=== PATIENT | female | born 1940 | race Caucasian/White ===

== ENCOUNTER 2020-07-05 13:18 | Inpatient (IN) | payer MEDICARE, BC ==
[2020-07-05] MEDS ORDERED: Labetalol HCl 100 MG/20 ML VIAL ONE (13:34)
[2020-07-05 13:50] LABS: #Eosinphils 0.3 thou/uL (0.0-0.7); #Lymphocytes 1.8 thou/uL (1.20-3.40); #Monocytes 0.5 thou/uL (0.11-0.59); #Neutrophils 4.5 thou/uL (1.40-6.50); %Basophils 0.3 % (0.0-1.0); %Eosinophils 3.8 % (0.0-10.0); %Lymphocytes 25.1 % (21.0-51.0); %Monocytes 7.5 % (0.0-10.0); %Neutrophils 63.2 % (42.0-75.0); Mean Corpuscular HGB CONC 33.7 g/dL (32.0-36.0); Mean Corpuscular Hemoglobin 31.9 pg (27.0-31.0); Mean Corpuscular Volume 94.6 fL (78.0-98.0); Mean Platelet Volume 7.7 fL (7.4-10.4); Platelet Count 226 thou/uL (130-400); RBC Distribution Width 11.6 % (11.5-14.5); Red Blood Cell (RBC) Count 4.71 mill/uL (4.20-5.40); White Blood Cell (WBC) Count 7.2 thou/uL (4.8-10.8)
[2020-07-05 14:16] LABS: ALT (SGPT) 22 U/L (8-55); AST (SGOT) 25 U/L (5-34); Albumin 4.5 g/dL (3.4-4.8); Alkaline Phosphatase 92 U/L (40-110); Anion Gap 19 mmol/L (10-20); BUN (Urea Nitrogen) 17 mg/dL (9.8-20.1); Bilirubin, Total 1.4 mg/dL (0.2-1.2); CK (CPK) 148 U/L (29-168); Calc. Creatinine Clearance 0 mL/min (70-130); Carbon Dioxide 20 mmol/L (23-31); Chloride 103 mmol/L (98-107); Globulin 3.1 g/dL (2.4-3.5); Glucose 108 mg/dL (83-110); Magnesium 2.1 mg/dL (1.6-2.6); Potassium 3.4 mmol/L (3.5-5.1); Protein, Total 7.6 g/dL (5.8-8.1); Sodium 139 mmol/L (136-145)
[2020-07-05] MEDS ORDERED: Iopamidol-370 76% 500 ML 1 ML ONE (14:51)
[2020-07-05 14:56] LABS: Bilirubin Negative (Negative); Blood, Urine Negative (Negative); Clarity Clear (Clear); Glucose, Urine (Dipstick) Normal (Negative); Ketone, Urine Negative (Negative); Leukocyte Negative Leu/uL (Negative); Nitrite Negative (Negative); Protein, Urine (Dipstick) Negative (Neg-Trace); Specific Gravity, Urine 1.021 (1.002-1.036); Urobilinogen Normal mg/dL (Less than 2); pH, Urine 7.5 (5.0-9.0)
[2020-07-05] MEDS ORDERED: niCARdipine 20MG In NaCl 20 MG/200 ML BAG ONE (15:57)
[2020-07-05] MEDS ORDERED: Aspirin Chewable 81 MG TAB ONE (15:58)
[2020-07-05] MEDS ORDERED: Acetaminophen 325 MG TAB PO PRN (16:43)
[2020-07-05] MEDS ORDERED: Acetaminophen 650 MG Suppository ONE ×2 (17:10→17:11)
[2020-07-05 17:29] LABS: Amphetamine Not Detected (NotDetected); Barbiturates Screen Not Detected (NotDetected); Benzodiazepine Screen Not Detected (NotDetected); Cocaine Metabolite Screen Not Detected (NotDetected); Medtox Control Line Valid? VALID (VALID); Medtox Reader # READER 4; Methadone Not Detected (NotDetected); Methamphetamine Not Detected (NotDetected); Opiate Screen Not Detected (NotDetected); Oxycodone Screen Not Detected (NotDetected); Phencyclidine (PCP) Not Detected (NotDetected); THC/Cannabinoid Screen Not Detected (NotDetected); Tricyclic Screen Not Detected (NotDetected)
[2020-07-05 17:52] LABS: SARS-CoV-2 NAA Rapid Test Not Detected (NotDetected)
[2020-07-05 18:04] LABS: Cardiac Risk 2.7 (Less than 4.5)
[2020-07-05 18:20] LABS: Free T4 (Free Thyroxine) 1.13 ng/dL (0.70-1.48)
[2020-07-05] MEDS ORDERED: Ondansetron HCl/PF 4 MG in Sodium Chloride 0.9% 50 ML IVPB PRN (18:26)
[2020-07-05] MEDS ORDERED: Labetalol HCl 100 MG/20 ML VIAL SLOW IVP PRN (18:26)
[2020-07-05] MEDS ORDERED: Ibuprofen 200 MG TAB ONE (19:20)
[2020-07-05 20:34] LABS: Troponin I 0.011 ng/mL (< 0.028)
[2020-07-05 20:51] VITALS: BMI 18.1
[2020-07-05] MEDS ORDERED: Rosuvastatin 20 MG TAB PO SCH (21:00)
[2020-07-05] MEDS ORDERED: Atorvastatin Calcium 40 MG TAB PO SCH (21:00)
[2020-07-05] MEDS: Lactated Ringer's 1,000 ML IV SCH (22:11)
[2020-07-05] MEDS ORDERED: Acetaminophen 650 MG Suppository PR PRN (22:38)
[2020-07-06] MEDS ORDERED: Labetalol HCl 100 MG/20 ML VIAL SLOW IVP PRN ×2 (05:57→08:20)
[2020-07-06 08:29] LABS: Anion Gap 15 mmol/L (10-20); BUN (Urea Nitrogen) 20 mg/dL (9.8-20.1); Calc. Creatinine Clearance 34 mL/min (70-130); Calcium 9.2 mg/dL (7.8-10.44); Carbon Dioxide 22 mmol/L (23-31); Chloride 103 mmol/L (98-107); Glucose 115 mg/dL (83-110); Potassium 3.6 mmol/L (3.5-5.1); Sodium 136 mmol/L (136-145)
[2020-07-06] MEDS ORDERED: Enoxaparin Sodium 40 MG/0.4 ML SYRINGE SC SCH (09:00)
[2020-07-06] MEDS ORDERED: Aspirin 81 mg Enteric Coated Tablet PO SCH (09:00)
[2020-07-06] MEDS: Lactated Ringer's 1,000 ML IV SCH (09:06)
[2020-07-06] MEDS ORDERED: Losartan 25 MG TAB PO SCH ×2 (11:45→21:00)
[2020-07-06] MEDS ORDERED: Magnevist 469MG/ML 20 ML VIAL ONE (12:24)
[2020-07-06 13:39] LABS: #Lymphocytes 1.9 thou/uL (1.20-3.40); #Monocytes 1.1 thou/uL (0.11-0.59); #Neutrophils 9.3 thou/uL (1.40-6.50); %Basophils 0.2 % (0.0-1.0); %Eosinophils 0.3 % (0.0-10.0); %Lymphocytes 15.5 % (21.0-51.0); %Monocytes 9.2 % (0.0-10.0); %Neutrophils 74.9 % (42.0-75.0); Hemoglobin 14.1 g/dL (12.0-16.0); Mean Corpuscular HGB CONC 34.1 g/dL (32.0-36.0); Mean Corpuscular Hemoglobin 32.5 pg (27.0-31.0); Mean Corpuscular Volume 95.2 fL (78.0-98.0); Mean Platelet Volume 7.5 fL (7.4-10.4); Platelet Count 224 thou/uL (130-400); RBC Distribution Width 11.8 % (11.5-14.5); Red Blood Cell (RBC) Count 4.34 mill/uL (4.20-5.40); White Blood Cell (WBC) Count 12.4 thou/uL (4.8-10.8)
[2020-07-06 15:47] VITALS: TEMP 98.1
[2020-07-06 16:43] VITALS: BP 142/76
== END 2020-07-06 18:33 | disposition home or self-care (01) | DRG 78 ==
LOC: ERS 13:18 → ERHOLD 16:51 → 2SE 20:36
PROVIDERS: ADMIT Student in an Organized Health Care Education/Training Program; ATTEND Student in an Organized Health Care Education/Training Program
DX: I67.4 Hypertensive encephalopathy (principal); I16.1 Hypertensive emergency; G40.89 Other seizures; Z20.822 Contact with and (suspected) exposure to COVID-19; I10 Essential (primary) hypertension; E78.5 Hyperlipidemia, unspecified; Z82.3 Family history of stroke; Z88.1 Allergy status to other antibiotic agents; Z88.2 Allergy status to sulfonamides; Z79.899 Other long term (current) drug therapy
CPT/HCPCS: 0240U; 36415; 36416; 51701; 70450; 70496; 70498; 70553; 71045; 80048; 80053; 80061; 80306; 81003; 82140; 82550; 83735; 84145; 84439; 84443; 84481; 84484; 85025; 87040; 87086; 93005; 96365; 96375; 99292; A9579; J1650; Q9967

== ENCOUNTER 2023-05-18 11:08 | Outpatient (CLI) | payer MEDICARE | END 2023-05-18 11:09 | disposition home or self-care (01) | LOC: BICRAD 11:08 | PROVIDERS: ATTEND Family Medicine | DX: J20.9 Acute bronchitis, unspecified (principal) | CPT/HCPCS: 71046 ==